=== PATIENT | female | born 1975 | race Caucasian/White ===

== ENCOUNTER → 2017-02-25 | Outpatient (CLI) | payer OTHER ==
[~2017-02-25] MED LIST: ERGO400C PO; HYDR-3812 PO; LEVO137T32 PO; NITR-65 PO; ONDA8TAB9 PO; PHEN-640 PO
--- NOTE | 2017-03-01 13:39 | Diagnostic Imaging Report ---
INDICATION: Screening. The current study was also evaluated with a Computer Aided Detection (CAD) system. Comparison is made with prior examination from 06/23/15. FINDINGS: There is a moderate amount of residual fibroglandular tissue, bilaterally. There is no dominant mass, spiculated lesion or malignant appearing clustered microcalcifications identified. Skin, nipples and axillae are unremarkable. IMPRESSION: ACR BI-RADS Category 1: Negative. Result letter will be mailed to the patient. Note: At least 10% of breast cancer is not imaged by mammography. Dictated by: Dictated on workstation # [id number]
== END ==
LOC: RAD 10:16
PROVIDERS: ATTEND Obstetrics & Gynecology
DX: Z12.31 Encounter for screening mammogram for malignant neoplasm of breast (principal)
CPT/HCPCS: 77067

== ENCOUNTER → 2020-04-21 | Outpatient (CLI) | payer OTHER ==
[~2020-04-21] MED LIST changes: +ACHD5005 PO; -HYDR-3812 PO
--- NOTE | 2020-04-21 14:37 | Diagnostic Imaging Report ---
INDICATION: Left breast lump. Correlation is made with diagnostic mammogram earlier the same day. Sonographic interrogation of the area of lump upper outer left breast was performed. 1-3 o'clock location was evaluated. No sonographic abnormality is detected. No solid or cystic mass is detected. IMPRESSION: BI-RADS Category 1 No sonographic abnormality is detected. Continued close clinical and self breast exam is recommended to confirm stability of the palpable abnormality. ACR BI-RADS Category 1: Negative. Result letter will be mailed to the patient. Note: At least 10% of breast cancer is not imaged by mammography. Dictated by: Dictated on workstation # [id number]
--- NOTE | 2020-04-21 16:03 | Diagnostic Imaging Report ---
INDICATION: Palpable lump in the outer left breast. Correlation is made prior mammogram 02/25/2017 and 06/23/2015. 2-D and 3-D bilateral diagnostic mammography was performed with CAD. A BB marker is placed at the area of palpable abnormality in the upper outer left breast. Scattered fibroglandular densities are identified bilaterally. The parenchymal pattern is stable. No mass is detected. No malignant appearing microcalcifications are seen. Axillae are unremarkable. IMPRESSION: BI-RADS Category 0 No mammographic features suspicious for malignancy are identified. Even so, directed sonographic interrogation of the area of palpable abnormality is recommended and will be performed today. ACR BI-RADS Category 0: Incomplete. (Needs additional imaging evaluation). Result letter will be mailed to the patient. Note: At least 10% of breast cancer is not imaged by mammography. Dictated by: Dictated on workstation # [id number]
== END ==
LOC: RAD 11:30
PROVIDERS: ATTEND Obstetrics & Gynecology
DX: N63.23 Unspecified lump in the left breast, lower outer quadrant (principal)
CPT/HCPCS: 76642; 77066; G0279; 77062